=== PATIENT | male | born 1970 | race Native Hawaiian/Other Pacific Islander ===

== ENCOUNTER 2018-02-28 08:18 | Emergency (ER) | payer BC ==
[~2018-02-28] VITALS: Ht 190.5 cm; Wt 138.3 kg
[2018-02-28 08:21] VITALS: TEMP 98.8
[2018-02-28 10:01] LABS: PLATELET COUNT 257 K/uL (142-355)
[2018-02-28 10:05] LABS: POTASSIUM 4.8 mmol/L (3.6-5.2)
[2018-02-28 10:27] VITALS: BP 150/92
== END 2018-02-28 10:28 | disposition home or self-care (01) ==
LOC: ED 08:18
PROVIDERS: Family Medicine
DX: L03.116 Cellulitis of left lower limb (principal)
CPT/HCPCS: 36415; 80053; 85027; 96372; 99283; J1885